=== PATIENT | male | born 1945 | race Caucasian/White ===

== ENCOUNTER 2019-08-14 20:14 | Emergency (ER) | payer OTHER ==
[~2019-08-14] VITALS: Ht 182.9 cm; Wt 90.7 kg
[~2019-08-14 20:14] MED LIST: ASPIRIN EC81 M1 PO; CALCIUM500 MG PO; HUMALOG100 UNIT/1 SUBQ; HYDROCHLOROTH12.5 M1 PO; LANTUS100 UNIT/M SUBQ; LISINOPRIL40 MG PO; NOVOLOG100 UNIT/1 SUBQ; PRINIVIL20 M1 PO; VITAMIN D2000 UNIT PO
[2019-08-14] MEDS ORDERED: HUMALOG100 UNIT/1 SUBQ (20:23)
[2019-08-14] MEDS ORDERED: LANTUS SUBQ (20:24)
[2019-08-14] MEDS ORDERED: ZESTRIL40 MG PO (20:24)
[2019-08-14] MEDS ORDERED: HYDROCHLOROTHIA25 M2 PO (20:25)
[2019-08-14] MEDS ORDERED: LIPITOR 40 MG T40 M1 PO (20:25)
[2019-08-14 21:03] LABS: HEMATOCRIT 37.4 % (42.0-52.0); HEMOGLOBIN 12.5 gm/dL (14.0-18.0); MCH 30.2 pg (26.0-34.0); MCHC 33.3 g/dL (28.0-37.0); MCV 90.7 fL (80.0-100.0); RBC 4.13 mil/uL (4.50-6.00); RDW 13.7 % (10.5-14.5)
[2019-08-14 21:11] LABS: CALCIUM 9.3 mg/dL (8.5-10.1); CREATININE 0.9 mg/dL (0.7-1.3)
[2019-08-14 21:17] LABS: ALBUMIN 3.6 g/dL (3.4-5.0); MAGNESIUM 1.9 mg/dL (1.8-2.4); TOTAL BILIRUBIN 0.3 mg/dL (<0.1-1.0); TOTAL PROTEIN 7.2 g/dL (6.4-8.2)
[2019-08-14 22:36] VITALS: BP 153/69
== END 2019-08-14 22:37 | disposition home or self-care (01) ==
LOC: ER 20:14
PROVIDERS: Physician Assistant
DX: M79.661 Pain in right lower leg (principal); M71.21 Synovial cyst of popliteal space [Baker], right knee; E11.9 Type 2 diabetes mellitus without complications; Z79.4 Long term (current) use of insulin; Z88.0 Allergy status to penicillin

== ENCOUNTER 2019-09-02 08:56 | Emergency (ER) | payer OTHER ==
[~2019-09-02] VITALS: Ht 182.9 cm; Wt 88.9 kg
[~2019-09-02 08:56] MED LIST changes: +HYDROCHLOROTHIA25 M2 PO; +LANTUS SUBQ; +LIPITOR 40 MG T40 M1 PO; +ZESTRIL40 MG PO
[2019-09-02] MEDS ORDERED: ZYRTEC-D TABLE1 EAC1 PO (09:06)
[2019-09-02 09:18] LABS: ABSOLUTE NEUTROPHILS 2.4 thou/uL (1.4-8.2); EOSINOPHILS 4.6 % (0.0-3.0); HEMATOCRIT 38.5 % (42.0-52.0); LYMPHOCYTES 32.8 % (24.0-44.0); MCH 30.4 pg (26.0-34.0); MCHC 33.7 g/dL (28.0-37.0); MCV 90.4 fL (80.0-100.0); MONOCYTES 9.2 % (1.0-8.0); PLATELET COUNT 143 thou/uL (150-400); POLYS 52.4 % (36.0-66.0); RBC 4.26 mil/uL (4.50-6.00); RDW 13.4 % (10.5-14.5); WBC 4.5 thou/uL (4.0-11.0)
[2019-09-02 09:27] LABS: ANION GAP 0 mmol/L (7-16); BUN 20 mg/dL (7-18); CALCIUM 9.2 mg/dL (8.5-10.1); CHLORIDE 101 mmol/L (98-107); CO2 29 mmol/L (21-32); GLUCOSE 304 mg/dL (74-106); SODIUM 130 mmol/L (136-145)
[2019-09-02 09:36] LABS: SALICYLATE < 2.8 mg/dL (2.8-20.0); TROPONIN-I <0.06 ng/mL (<0.06)
[2019-09-02 09:54] LABS: URINE BILIRUBIN NEGATIVE (Negative); URINE BLOOD NEGATIVE (Negative); URINE CLARITY CLEAR; URINE COLOR YELLOW; URINE GLUCOSE-RANDOM* 3+ (Negative); URINE KETONES NEGATIVE (Negative); URINE LEUKOCYTES-REFLEX NEGATIVE (Negative); URINE NITRITE-REFLEX NEGATIVE (Negative); URINE PROTEIN (DIPSTICK) NEGATIVE (Negative); URINE UROBILINOGEN 0.2 E.U./dl (0.2-1.0)
[2019-09-02 11:04] VITALS: BP 134/78
[2019-09-02] MEDS ORDERED: CALCIUM500 MG PO (23:01)
[2019-09-02] MEDS ORDERED: PROBIOTIC1 EAC7 PO (23:02)
--- NOTE | 2019-09-03 09:17 | EKG ---
[place] [address] 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
== END 2019-09-02 11:10 | disposition home or self-care (01) ==
LOC: ER 08:56
PROVIDERS: Emergency Medicine
DX: R55 Syncope and collapse (principal); E11.9 Type 2 diabetes mellitus without complications; Z88.0 Allergy status to penicillin

== ENCOUNTER 2019-09-02 18:51 | Inpatient (IN) | payer OTHER ==
[~2019-09-02] VITALS: Ht 182.9 cm; Wt 89.0 kg
[~2019-09-02 18:51] MED LIST changes: +ZYRTEC-D TABLE1 EAC1 PO
[2019-09-02 18:56] VITALS: BP 133/73
[2019-09-02 19:18] LABS: ABSOLUTE NEUTROPHILS 4.1 thou/uL (1.4-8.2); BASOPHILS 0.6 % (0.0-2.0); EOSINOPHILS 1.9 % (0.0-3.0); HEMATOCRIT 38.7 % (42.0-52.0); LYMPHOCYTES 23.1 % (24.0-44.0); MCH 30.3 pg (26.0-34.0); MCHC 33.6 g/dL (28.0-37.0); MCV 90.4 fL (80.0-100.0); MONOCYTES 7.7 % (1.0-8.0); PLATELET COUNT 164 thou/uL (150-400); POLYS 66.7 % (36.0-66.0); RBC 4.28 mil/uL (4.50-6.00); RDW 13.5 % (10.5-14.5); WBC 6.1 thou/uL (4.0-11.0)
[2019-09-02 19:27] LABS: ANION GAP 9 mmol/L (7-16); BUN 23 mg/dL (7-18); CALCIUM 9.2 mg/dL (8.5-10.1); CHLORIDE 100 mmol/L (98-107); CO2 25 mmol/L (21-32); GLUCOSE 353 mg/dL (74-106); POTASSIUM 4.1 mmol/L (3.5-5.1); SODIUM 134 mmol/L (136-145)
[2019-09-02 19:35] LABS: ALBUMIN 3.7 g/dL (3.4-5.0); SGOT 21 U/L (15-37); SGPT 25 U/L (30-65); TOTAL BILIRUBIN 0.3 mg/dL (<0.1-1.0); TOTAL PROTEIN 7.3 g/dL (6.4-8.2); TROPONIN-I <0.06 ng/mL (<0.06)
[2019-09-02 19:56] LABS: URINE BILIRUBIN NEGATIVE (Negative); URINE BLOOD NEGATIVE (Negative); URINE CLARITY CLEAR; URINE COLOR YELLOW; URINE GLUCOSE-RANDOM* 3+ (Negative); URINE KETONES NEGATIVE (Negative); URINE LEUKOCYTES-REFLEX NEGATIVE (Negative); URINE NITRITE-REFLEX NEGATIVE (Negative); URINE PROTEIN (DIPSTICK) NEGATIVE (Negative); URINE SPECIFIC GRAVITY 1.015 (1.005-1.035); URINE UROBILINOGEN 0.2 E.U./dl (0.2-1.0)
[2019-09-02 22:17] VITALS: BP 132/65
[2019-09-02 22:33] VITALS: BP 143/82
[2019-09-02 22:34] VITALS: BP 120/83
[2019-09-02] MEDS ORDERED: CALCIUM500 MG PO (23:01)
[2019-09-02] MEDS ORDERED: PROBIOTIC1 EAC7 PO (23:02)
[2019-09-03] VITALS: BP 151/62
--- NOTE | 2019-09-03 03:29 | NUR ---
ASSUMED CARE OF PATIENT FROM ER. ADMISSION COMPLETE. STATES HE DRANK HALF A BOTTLE OF NYQUIL ON TUESDAY AND TOOK ZYRTEC ON TUESDAY. 12 MINUTES AFTER HE TOOK ZYRTEC, SHE OBSERVED SEIZURE LIKE ACTIVITY. WENT TO ER, AND DISCHARGED HOME. PATIENT CAME BACK WHEN SNYCOPAL EPISODES CONTINUED AND HE JUST DIDN'T FEEL RIGHT. DENIES PAIN, SOA OR N/V. POC GOALS ESTABLISHED, WILL CONTINUE TO MONITOR.
[2019-09-03 05:23] VITALS: BP 121/75
[2019-09-03 07:25] VITALS: BP 138/73
[2019-09-03 11:58] VITALS: BP 131/85
--- NOTE | 2019-09-03 16:01 | 2DMMODE ---
[facility] [address] [place] [address] 2 D/M-MODE ECHOCARDIOGRAM Name: JIMMJ Room #: 363-P ADM IN M.R.#: [id number] Admission: 09/02/19 Attend Phys: Radha Be Discharge: Date of : 45 Report #: [id number] THIS REPORT FOR: //name// APPROVED REPORT Study performed: 09/03/2019 14:38:51 EXAM: Comprehensive 2D, Doppler, and color-flow Echocardiogram Patient Location: Echo lab Room #: 363 Status: routine BSA: 2.11 HR: 73 bpm BP: 131/85 mmHg Rhythm: NSR Other Information Study Quality: Good Indications Diabetes Syncope Hypertension/HDD 2D Dimensions RVDd: 38.79 mm IVSd: 9.21 (7-11mm) LVOT Diam: 18.69 (18-24mm) LVDd: 48.89 mm PWd: 9.96 (7-11mm) Ascending Ao: 33.38 (22-36mm) LVDs: 29.51 (25-40mm) Aortic Root: 35.22 mm IVC: 17.00 mm Volumes Left Atrial Volume (Systole) Single Plane 4CH: 55.69 mL Single Plane 2CH: 44.92 mL LA ESV Index: 26.00 mL/m2 Aortic Valve AoV Peak Wilfrid.: 1.52 m/s AO Peak Gr.: 9.19 mmHg LVOT Max P.27 mmHg LVOT Max V: 1.03 m/s MOIRA Vmax: 1.87 cm2 Mitral Valve E/A Ratio: 0.7 [facility] [place] [place] [address] 2 D/M-MODE ECHOCARDIOGRAM Name: MJ FERNANDEZ Room #: 363-P [facility] IN .R.#: [id number] Admission: 09/02/19 Attend Phys: Radha Be Discharge: Date of : 45 Report #: [id number] MV Decel. Time: 300.35 ms MV E Max Wilfrid.: 0.66 m/s MV A Wilfrid.: 0.99 m/s MV PHT: 87.10 ms IVRT: 189.16 ms Pulmonary Valve PV Peak Wilfrid.: 1.22 m/s PV Peak Gr.: 6.02 mmHg Pulmonary Vein P Vein S: 0.76 m/s P Vein A: 0.36 m/s P Vein D: 0.30 m/s P Vein A Dur.: 101.5 msec P Vein S/D Ratio: 2.53 Tricuspid Valve TR Peak Wilfrid.: 2.44 m/s TR Peak Gr.: 23.84 mmHg PA Pressure: 29.00 mmHg Left Ventricle The left ventricle is normal size. There is normal LV segmental wall motion. There is normal left ventricular wall thickness. The left ventricular systolic function is normal. The left ventricular ejection fraction is within the normal range. LVEF is 55-60%. Grade I - abnormal relaxation pattern. Right Ventricle The right ventricle is normal size. The right ventricular systolic function is normal. Atria The left atrium size is normal. The right atrium size is normal. Aortic Valve The aortic valve is normal in structure. No aortic regurgitation is present. There is no aortic valvular stenosis. Mitral Valve The mitral valve is normal in structure. Trace to mild mitral regurgitation. No evidence of mitral valve stenosis. Tricuspid Valve The tricuspid valve is normal in structure. There is trace tricuspid regurgitation. Estimated PAP 29 mmHg. There is no pulmonary hypertension. [facility] [address] [place] [address] 2 D/M-MODE ECHOCARDIOGRAM Name: MJ FERNANDEZ Room #: 363-P ADM IN M.R.#: [id number] Admission: 09/02/19 Attend Phys: Radha Be Discharge: Date of : 45 Report #: [id number] Pulmonic Valve The pulmonary valve is normal in structure. Trace pulmonic regurgitation. Great Vessels The aortic root is normal in size. IVC is normal in size and collapses >50% with inspiration. Pericardium There is no pericardial effusion. <Conclusion> The left ventricle is normal size. LVEF is 55-60%. The aortic valve is normal in structure. The mitral valve is normal in structure. Trace to mild mitral regurgitation. The tricuspid valve is normal in structure. There is trace tricuspid regurgitation. Estimated PAP 29 mmHg. There is no pulmonary hypertension. The pulmonary valve is normal in structure. Trace pulmonic regurgitation. There is no pericardial effusion. <ELECTRONICALLY SIGNED> By: Eric Shane MD 09/03/191599 99 99 Eric Shane MD /INF
--- NOTE | 2019-09-03 16:30 | NUR ---
INITIAL ASSESSMENT: Pt evaluated for d/c planning needs. Reviewed chart and spoke with nurse and pt. Pt is alert and oriented. Pt lives in house with spouse and was independent with ADL's prior to admission to the hospital. Pt remains active in the community and is driving. Pt uses no DME and has not had home health in the past. Pt is scheduled to have pacemaker placed on Tuesday. Pt plans on returning home on d/c from hospital. Will remain available to assist as needed.
--- NOTE | 2019-09-03 17:05 | EKG ---
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
[2019-09-03 21:07] VITALS: BP 151/79
[2019-09-04 04:26] VITALS: BP 139/64
[2019-09-04 05:39] LABS: ABSOLUTE NEUTROPHILS 2.5 thou/uL (1.4-8.2); BASOPHILS 0.8 % (0.0-2.0); EOSINOPHILS 4.7 % (0.0-3.0); HEMATOCRIT 38.4 % (42.0-52.0); HEMOGLOBIN 12.8 gm/dL (14.0-18.0); LYMPHOCYTES 39.8 % (24.0-44.0); MCH 30.1 pg (26.0-34.0); MCHC 33.3 g/dL (28.0-37.0); MCV 90.3 fL (80.0-100.0); MONOCYTES 10.7 % (1.0-8.0); PLATELET COUNT 155 thou/uL (150-400); RBC 4.26 mil/uL (4.50-6.00); RDW 13.2 % (10.5-14.5); WBC 5.6 thou/uL (4.0-11.0)
--- NOTE | 2019-09-04 06:53 | NUR ---
PT OFF UNIT FOR PACEMAKER SURGERY AROUND 0635 IN STABLE CONDITION. I WAS IN ANOTHER PT ROOM WHEN THEY CAME FOR HIM BUT ANOTHER RN ON THE FLOOR NOTIFIED MED THAT [facility] HAD COME FOR HIM.
[2019-09-04 08:15] LABS: PROTIME 10.3 Seconds (9.3-11.4)
--- NOTE | 2019-09-04 13:34 | H ---
[facility] [place] [address] HISTORY AND PHYSICAL Name: MJ FERNANDEZ Room #: 216-P ADM IN M.R.#: [id number] Admission: 09/02/19 Attend Phys: Ana Laura Dumont MD Discharge: Date of : 45 Report #: [id number] THIS REPORT FOR: //name// CC: Ana Laura Dumont DATE OF SERVICE: 09/02/2019 ATTENDING PHYSICIAN: Dr. Dumont. CHIEF COMPLAINT: Seizure-like activity. HISTORY OF PRESENT ILLNESS: The patient is a 73-year-old gentleman who was admitted through the Emergency Room yesterday evening after having 4 episodes on Tuesday of seizure-like activity. Between he and his what he described as yesterday morning while sitting at the breakfast table preparing his insulin injection, he felt a sense of "fading" and then his said his head dropped at the table and his arms became clinch towards his chest and he had a tremor. She said this lasted about 10 seconds and then in about another 30 seconds to a minute. He is sort of came to and was back to his usual self. He does not remember the brief episode of loss of consciousness or his head hitting the table. It sounds like he came to the Emergency Room and then was discharged. He said then he had three more episodes later in the day very similar, but to a less severity. Again, he says he felt a sense of something occurring which was then followed by shaking and/or tremor of his extremities. He has had these 3 times that were much more self-limited. He then came back to the Emergency Room and was admitted overnight where he has had no further difficulty. He has not had any hypoglycemic reactions yesterday as evidenced by his blood sugar recordings from home. He has had no fever or chills. He has been using some popy-uor-jujktdv cough and cold medicine including Nyquil, Zyrtec D, and apparently had a glass of wine the night before these episodes, but that is not unusual for his diet. PAST MEDICAL HISTORY: Hypertension, diabetes type 2. PAST SURGICAL HISTORY: None. FAMILY HISTORY: Noncontributory. SOCIAL HISTORY: . No chronic alcohol or tobacco use. ALLERGIES: PENICILLIN. MEDICATIONS: Humalog with meals, Lantus 20 units at bedtime, Zestril 40 mg, hydrochlorothiazide 25 mg, Lipitor 40 mg, Zyrtec D, and he was also using hhvz-ibj-ojadeqf Nyquil and Benadryl. [facility] [address] [place] [address] HISTORY AND PHYSICAL Name: MJ FERNANDEZ Room #: 216-P [facility] IN [facility]#: [id number] Admission: 09/02/19 Attend Phys: Ana Laura Dumont MD Discharge: Date of : 45 Report #: [id number] REVIEW OF SYSTEMS: He denies headache, chest pain, shortness of breath, abdominal pain, nausea, vomiting, diarrhea, constipation, or dysuria. OBJECTIVE: VITAL SIGNS: Temperature 36.5, pulse 90, respirations 16, blood pressure 131/85, O2 sat 97% on room air. GENERAL: He is awake and alert and oriented x 4. HEAD and NECK: Unremarkable. LUNGS: Clear. HEART: Regular. ABDOMEN: Soft, normoactive bowel sounds. EXTREMITIES: No edema. NEUROLOGIC: Cranial nerves intact. Speech is fluent. Motor strength intact. LABORATORY DATA: Labs and CT reviewed. ASSESSMENT: 1. Seizure-like activity. 2. Hypertension. 3. Diabetes type 2. PLAN: I have asked for an EEG and Dr. Samson to see him in consultation. Dr. Francisco has been notified so far no cardiac dysrhythmias overnight. If medically stable and he gets his EEG, we can plan for early discharge this afternoon or evening and then follow up as an outpatient. <ELECTRONICALLY SIGNED> By: Rush Lin MD 09/04/19 1334 1251 1305 Rush Lin MD /nt
[2019-09-04 15:42] VITALS: BP 142/71
--- NOTE | 2019-09-04 17:45 | NUR ---
PT ARRIVED ON UNIT AT APPROX 1015 AFTER A PACEMAKER PLACEMENT. ASSESSMENTS CHARTED. MEDS GIVEN PER MAR. PT REFUSES SLIDING SCALE INSULIN. PT IS UP AD STEPHAN, ON RA, A&OX4. INCISION IS CLOSED WITH DERMABOND AND CDI WITH NO REDNESS OR SWELLING. NO C/O PAIN. CXR PLANNED FOR TOMORROW AND THEN DISCHARGE. WILL CONTINUE TO MONITOR AND FOLLOW POC.
[2019-09-04 19:58] VITALS: BP 146/77
[2019-09-05 00:48] VITALS: BP 135/68
[2019-09-05 04:55] VITALS: BP 138/68
--- NOTE | 2019-09-05 05:29 | NUR ---
ASSUMED PT CARE AT 1900. PT IS ALERT AND ORIENTED. SPOUSE AT BEDSIDE. PT IS STABLE. PACEMAKER SITE IS INTACT, CLEAN AND DRY. ARM IMMOBILIZER IN PLACE. ASSESSMENT COMPLETED AND DOCUMETED. NO SIGN OF DISTRESS NOTED. SCHEDULED MEDS ADMINISTERED TO PT. PT DENIES ANY PAIN. NO FURTHER NEEDS AT THIS TIME.
[2019-09-05 07:21] VITALS: BP 127/79
[2019-09-05 11:26] VITALS: BP 107/63
[2019-09-05 13:11] VITALS: BP 107/63
--- NOTE | 2019-09-05 15:02 | NUR ---
ASSUMED CARE OF PT AT SHIFT CHANGE. ASSESSMENTS CHARTED. MEDS PER JAN. VSS. A&OX4. NO C/O PAIN. INCISION SITE CDI. PT UP AD STEPHAN TO BATHROOM. NO C/O DIZZINESS OR CHEST PAIN. DISCHARGE ORDERS AND EDUCATION COMPLETE. TELE BOX AND IV D/C'D. PT LEFT UNIT VIA VOLUNTEER WHEELCHAIR WITH TO DRIVE HOME.
--- NOTE | 2019-09-11 12:54 | D ---
[facility] [place] [address] DISCHARGE SUMMARY Name: MJ FERNANDEZ Room #: 216-P [facility] IN M.R.#: [id number] Admission: 09/02/19 Attend Phys: Ana Laura Dumont MD Discharge: 09/05/19 Date of : 45 Report #: [id number] THIS REPORT FOR: //name// CC: Ana Laura Dumont FINAL DIAGNOSES: 1. Sick sinus syndrome. 2. Near syncope. 3. Hypertension. 4. Diabetes type 2. HOSPITAL COURSE: The patient was admitted with near syncope and seizure-like activity. It was determined that he had sinus pause and symptomatic bradycardia by telemetry. EEG was negative. Dr. Whitney placed a pacemaker implant. See that procedure note. His other home medications were continued. Followup x-ray was unremarkable and he had an otherwise uneventful stay. PHYSICAL EXAMINATION: GENERAL: On the day of discharge, he was awake and alert. VITAL SIGNS: Stable. LUNGS: Clear. HEART: Regular. ABDOMEN: Soft, normoactive bowel sounds. EXTREMITIES: No edema. DISPOSITION: He is discharged to home with diabetic diet, activity as tolerated. Follow up with Dr. Whitney in 1-2 weeks, Dr. Dumont in a month. Resume all usual home medications. <ELECTRONICALLY SIGNED> By: Rush Lin MD 09/11/19 1254 1253 1329 Rush Lin MD /lily
--- NOTE | 2019-09-14 14:17 | EEG ---
[facility] [address] [address] [place] [address] ELECTROENCEPHALOGRAM Name: MJ FERNANDEZ Room #: 216-P [facility] IN M.R.#: [id number] Admission: 09/02/19 Attend Phys: Ana Laura Dumont MD Discharge: 09/05/19 Date of : 45 Report #: [id number] THIS REPORT FOR: //name// CC: Ana Laura Dumont DATE OF SERVICE: 09/03/2019 This patient is being evaluated for near syncope and EEG was done by placing the electrode by standard 10/20 system of electrode placement. Both referential and sequential montages were used for recording. Background activity in this patient's EEG is about 9 Hz and 30 microvolts. It is a symmetrical activity. The patient became drowsy and that is associated with bilateral slowing and vertex sharp waves. Photic stimulation was unremarkable. Throughout the record, no active epileptiform activity was noticed. IMPRESSION: This patient's EEG is within normal limit. Thank you very much for this referral. <ELECTRONICALLY SIGNED> By: Tank Cruz MD 09/14/19 1417 1805 1814 Tank Cruz MD /nt
--- NOTE | 2019-09-20 12:29 | HC ---
[facility] [place] [address] CONSULTATION Name: MJ FERNANDEZ Room #: 216-P [facility] IN M.R.#: [id number] Admission: 09/02/19 Attend Phys: Ana Laura Dumont MD Discharge: 09/05/19 Date of : 45 Report #: [id number] THIS REPORT FOR: //name// CC: Ana Laura Dumont DATE OF SERVICE: 09/03/2019 PREOPERATIVE DIAGNOSIS: Syncope. HISTORY OF PRESENT ILLNESS: The patient is a 73-year-old with type 1 diabetes, hypertension, who yesterday was at home in his usual state of health. He was eating breakfast and then felt tunnel vision, lightheaded and then passed out into his Serena chair. He was probably out for about 10-15 seconds per the . He denied any chest pain, shortness of breath, PND or orthopnea. He went to the Emergency Room. His evaluation was unrevealing. He was wondering if that he took too much Nyquil. He also reported that he had some sort of pain in his right calf 6 weeks ago and was wondering somehow if this was related, which I doubt. Anyways, he went home after being in the ER and had some multiple presyncopal episodes once again. He was placed on telemetry, which I reviewed and shows that he has sinus rhythm with periods of sinus arrest and junctional escape with several 4 and 5 second pauses. This likely explains his syncopal episodes. PAST MEDICAL HISTORY: As above. SOCIAL HISTORY: Does not smoke. FAMILY HISTORY: Noncontributory. ALLERGIES: PENICILLIN. MEDICATIONS: Have been reviewed. Not on any beta blockers or AV chriss blocking agents. REVIEW OF SYSTEMS: A 12-point review of systems was performed and was negative other than what I mentioned above. PHYSICAL EXAMINATION: VITAL SIGNS: Stable. GENERAL: In no acute distress. HEENT: Oropharynx clear. NECK: Supple, no thyromegaly. HEART: Regular rate and rhythm. LUNGS: Clear to auscultation bilaterally. ABDOMEN: Soft, nontender, nondistended. EXTREMITIES: No clubbing, cyanosis, edema. [facility] [address] [place] [address] CONSULTATION Name: MJ FERNANDEZ Room #: 216-P [facility] IN M.R.#: [id number] Admission: 09/02/19 Attend Phys: Ana Laura Dumont MD Discharge: 09/05/19 Date of : 45 Report #: [id number] NEUROLOGIC: Cranial nerves 2-12 are intact. DIAGNOSTIC STUDIES: A 12-lead EKG shows sinus rhythm with no ischemic changes. His echo is pending. His telemetry is as per above showing multiple episodes of sinus arrest with junctional escape beats with 4 and 5 second pauses. ASSESSMENT: 1. Syncope. 2. Sick sinus syndrome. PLAN: I have discussed with the patient will require an echocardiogram. We will place him on fall precautions. He will need to undergo dual-chamber pacemaker tomorrow. We have discussed the details of the procedure including the risks, which include but not limited to bleeding, infection, vascular damage, cardiac perforation, pneumothorax. He understood these risks and is willing to proceed. <ELECTRONICALLY SIGNED> By: Pietro Whitney MD 09/20/19 1229 1433 2103 Pietro Whitney MD /nt
--- NOTE | 2019-09-20 12:29 | P ---
[facility] [place] [address] PROCEDURE REPORT Name: MJ FERNANDEZ Room #: 216-P [facility] IN M.R.#: [id number] Admission: 09/02/19 Attend Phys: Ana Laura Dumont MD Discharge: 09/05/19 Date of : 45 Report #: [id number] THIS REPORT FOR: //name// CC: Ana Laura Dumont PACEMAKER IMPLANTATION REPORT PREOPERATIVE DIAGNOSES: 1. Syncope. 2. Sick sinus syndrome. 3. Sinus arrest. POSTOPERATIVE DIAGNOSES: 1. Syncope. 2. Sick sinus syndrome. 3. Sinus arrest. HISTORY: The patient is a 73-year-old with history of diabetes, who presented to the Emergency Room after having a syncopal episode while eating breakfast. He was discharged, but then came back, as he had 4 recurrent presyncopal episodes. He underwent an echocardiogram, which was normal. He had evidence on the telemetry of a sinus arrest with junctional escapes with up to 4 second pauses. He is here for a dual chamber pacemaker implantation. ANESTHESIA: The patient underwent MAC anesthesia with no anesthesia related complications. DESCRIPTION OF PROCEDURE: The patient underwent informed consent. We discussed the details of the procedure including the risks, which include, but are not limited to, bleeding, infection, vascular damage, cardiac perforation, and pneumothorax. He understood these risks and is willing to proceed. The patient was brought to EP laboratory in a fasting and sedated state and prepped and draped in the sterile fashion. He underwent venography, showing patency of the left axillary vein and received IV antibiotics. Next, lidocaine was injected below the level of left clavicle. Incision was made and pocket was created over prepectoral fascia. Access was obtained twice to left axillary vein using the extrathoracic approach with sheaths positioned using the modified Seldinger technique. Leads were positioned in the right ventricular apex and the right atrial appendage, both with adequate pacing and sensing thresholds and the leads were sutured to the prepectoral fascia using Ethibond suture. The pocket was irrigated with vancomycin. Device was connected, test performed, pocket was closed in 2 layers using 2-0 for the deep layer, 3-0 for the middle layer, and surgical glue placed to outer skin layer. The patient awoke neurologically and hemodynamically intact. No complications and no significant bleeding. [facility] [address] [place] [address] PROCEDURE REPORT Name: MJ FERNANDEZ Room #: 216-P [facility] IN M.R.#: [id number] Admission: 09/02/19 Attend Phys: Ana Laura Dumont MD Discharge: 09/05/19 Date of : 45 Report #: [id number] The implanted pacemaker was a [employer] model #2272, serial #[id number]. Atrial lead, [employer], model #2088TC, 52 cm, serial #[id number]. The RV lead is [employer], model #2088TC, serial [id number]. Atrial lead demonstrates P-wave 1.5 millivolts, pacing impedance of 550 ohms, pacing threshold of 1 volt at 0.4 milliseconds. RV lead demonstrates R waves at 6.8 millivolts, pacing impedance of 710 ohms, pacing threshold of 0.5 volts at 0.4 milliseconds. The pacemaker is programmed to the DDDR 60-130 mode. CONCLUSIONS: 1. Successful dual-chamber pacemaker implantation. 2. Satisfactory atrial and ventricular pacing and sensing thresholds. <ELECTRONICALLY SIGNED> By: Pietro Whitney MD 09/20/19 1229 0955 1052 Pietro Whitney MD /nt
== END 2019-09-05 13:50 | disposition home or self-care (01) | DRG 244 ==
LOC: ER 18:51 → EROBS 20:31 → 2N 20:31 → 3W 20:31 → 2N 09-04 09:41 → ENTRNSPT 09-05 13:43 → EDTRNSPTSTS 09-05 13:45 → 2N 09-05 13:50
PROVIDERS: Internal Medicine Cardiovascular Disease; Nurse Practitioner; Nurse Practitioner Family; ADMIT Internal Medicine
PROC: 02H63JZ Insertion of Pacemaker Lead into Right Atrium, Percutaneous Approach (ICD-10-PCS; principal; 2019-09-04)
PROC: 0JH606Z Insertion of Pacemaker, Dual Chamber into Chest Subcutaneous Tissue and Fascia, Open Approach (ICD-10-PCS; principal; 2019-09-04)
PROC: 02HK3JZ Insertion of Pacemaker Lead into Right Ventricle, Percutaneous Approach (ICD-10-PCS; principal; 2019-09-04)
DX: I49.5 Sick sinus syndrome (principal); R56.9 Unspecified convulsions; E11.9 Type 2 diabetes mellitus without complications; I10 Essential (primary) hypertension; Z96.0 Presence of urogenital implants; Z79.899 Other long term (current) drug therapy; Z79.4 Long term (current) use of insulin; Z88.0 Allergy status to penicillin
CPT/HCPCS: 10081; 10879; 62110; 62900; 70005

== ENCOUNTER → 2020-12-18 | Outpatient (CLI) | payer OTHER ==
[~2020-12-18] MED LIST changes: +PROBIOTIC1 EAC7 PO
== END ==
LOC: SJCVC 13:28
PROVIDERS: ATTEND Internal Medicine Cardiovascular Disease
DX: R55 Syncope and collapse (principal); I49.5 Sick sinus syndrome; E11.9 Type 2 diabetes mellitus without complications; I10 Essential (primary) hypertension; Z95.0 Presence of cardiac pacemaker; Z88.0 Allergy status to penicillin; Z79.4 Long term (current) use of insulin; Z79.899 Other long term (current) drug therapy; Z87.891 Personal history of nicotine dependence

== ENCOUNTER → 2020-12-23 | Outpatient (CLI) | payer OTHER | LOC: CAT 14:42 | PROVIDERS: ATTEND Internal Medicine Cardiovascular Disease | DX: Z13.6 Encounter for screening for cardiovascular disorders (principal); I25.10 Atherosclerotic heart disease of native coronary artery without angina pectoris; E78.00 Pure hypercholesterolemia, unspecified ==

== ENCOUNTER → 2021-02-03 | Outpatient (CLI) | payer OTHER | LOC: SJCVCIMAG 08:33 | PROVIDERS: ATTEND Internal Medicine Cardiovascular Disease | DX: I49.3 Ventricular premature depolarization (principal); R00.0 Tachycardia, unspecified; R93.1 Abnormal findings on diagnostic imaging of heart and coronary circulation; R55 Syncope and collapse; I49.5 Sick sinus syndrome; Z87.891 Personal history of nicotine dependence; E11.9 Type 2 diabetes mellitus without complications; Z79.899 Other long term (current) drug therapy; Z88.0 Allergy status to penicillin ==

== ENCOUNTER → 2021-02-17 | Outpatient (CLI) | payer OTHER | LOC: SJCVC 12:41 | PROVIDERS: ATTEND Internal Medicine Cardiovascular Disease | DX: I25.10 Atherosclerotic heart disease of native coronary artery without angina pectoris (principal); R94.39 Abnormal result of other cardiovascular function study; E11.9 Type 2 diabetes mellitus without complications; I10 Essential (primary) hypertension; I49.5 Sick sinus syndrome; Z88.0 Allergy status to penicillin; Z79.899 Other long term (current) drug therapy; Z79.4 Long term (current) use of insulin; Z87.891 Personal history of nicotine dependence; Z72.89 Other problems related to lifestyle; Z95.0 Presence of cardiac pacemaker ==

== ENCOUNTER → 2021-02-19 | Outpatient (CLI) | payer OTHER | LOC: SJCVC 13:10 | PROVIDERS: ATTEND Internal Medicine Cardiovascular Disease | DX: I49.5 Sick sinus syndrome (principal); R93.1 Abnormal findings on diagnostic imaging of heart and coronary circulation; I10 Essential (primary) hypertension; E78.5 Hyperlipidemia, unspecified; E78.00 Pure hypercholesterolemia, unspecified; R60.9 Edema, unspecified; Z88.0 Allergy status to penicillin; Z79.82 Long term (current) use of aspirin; Z79.4 Long term (current) use of insulin; Z79.899 Other long term (current) drug therapy; Z87.891 Personal history of nicotine dependence; Z72.89 Other problems related to lifestyle ==